=== PATIENT | male | born 1960 | race Caucasian/White ===

== ENCOUNTER → 2019-11-11 | Day surgery (SDC) | payer BC ==
[~2019-11-11] MED LIST: ATOR20TA58 PO; IV RINGERS,LACTATED 1000ML 1,000 ML IV SCH; PROPOFOL 0 ML IV ONE
[2019-11-11 09:49] VITALS: BP 124/76
== END ==
LOC: ENDOS 08:16
PROVIDERS: ATTEND Internal Medicine Gastroenterology
DX: Z12.11 Encounter for screening for malignant neoplasm of colon (principal); K64.0 First degree hemorrhoids; K63.89 Other specified diseases of intestine; F15.90 Other stimulant use, unspecified, uncomplicated; Z80.0 Family history of malignant neoplasm of digestive organs; Z88.0 Allergy status to penicillin; Z85.828 Personal history of other malignant neoplasm of skin; Z72.89 Other problems related to lifestyle; Z87.891 Personal history of nicotine dependence; Z98.890 Other specified postprocedural states
CPT/HCPCS: 45378; J2704

== ENCOUNTER 2021-07-02 18:37 | Emergency (ER) | payer BC ==
[~2021-07-02] VITALS: Ht 175.3 cm; Wt 86.3 kg
[~2021-07-02 18:37] MED LIST changes: -IV RINGERS,LACTATED 1000ML 1,000 ML IV SCH; -PROPOFOL 0 ML IV ONE
[2021-07-02] MEDS ORDERED: IV NORMAL SALINE 1000ML BAG 1,000 ML IV SCH (23:00)
[2021-07-02 23:03] LABS: BILIRUBIN,URINE NEGATIVE (NEG); CLARITY,URINE CLOUDY; COLOR,URINE YELLOW; NITRITE,URINE POSITIVE (NEG); PH,URINE 7.5 (<5.0-8.0); PROTEIN,URINE 100 mg/dL (NEG-TRACE)
--- NOTE | 2021-07-02 23:06 | PHYS DOC ---
Past Medical History Past Medical History: No Pertinent History Past Surgical History: Other Additional Past Surgical Histo: HERNIA, CARPAL TUNNEL Smoking Status: Never Smoker Alcohol Use: Rarely Drug Use: None General Adult EDM: Chief Complaint: BLOOD IN URINE HPI: HPI: Patient is a 60 year old male who presents with today began running a fever of 104 in having painful urination with blood in his urine. States every time he pees he has pain down into his scrotum. 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 He denies chest pain, shortness of breath, cough, nausea, vomiting, diarrhea, back pain, headache, dizziness, focal weakness. He has a history of BPH with prostate surgery, hernia repair and has another hernia now that needs to be repaired, high cholesterol. Review of Systems: Review of Systems: Constitutional: + fever or chills. [] Eyes: Denies change in visual acuity. [] HENT: Denies nasal congestion or sore throat. [] Respiratory: Denies cough or shortness of breath. [] Cardiovascular: Denies chest pain or edema. [] GI: + Lower abdominal pain when urinating, denies nausea, vomiting, bloody stools or diarrhea. [] : Denies dysuria. + Hematuria. + Testicular pain [] Musculoskeletal: Denies back pain or joint pain. [] Integument: Denies rash. [] Neurologic: Denies headache, focal weakness or sensory changes. [] Endocrine: Denies polyuria or polydipsia. [] Lymphatic: Denies swollen glands. [] Psychiatric: Denies depression or anxiety. [] Heart Score: C/O Chest Pain: No Risk Factors: Risk Factors: DM, Current or recent (<one month) smoker, HTN, HLP, family history of CAD, obesity. Risk Scores: Score 0 - 3: 2.5% MACE over next 6 weeks - Discharge Home Score 4 - 6: 20.3% MACE over next 6 weeks - Admit for Clinical Observation Score 7 - 10: 72.7% MACE over next 6 weeks - Early Invasive Strategies Current Medications: Current Medications Medications (Trade) Dose Ordered Sig/Miah Start Time Stop Time Status Last Admin Dose Admin Sodium Chloride 1,000 ml @ 1,000 mls/hr Q1H 07/02/21 23:00 07/02/21 23:59 UNV Allergies: Allergies: Allergies Coded Allergies Type Severity Reaction Last Updated Verified Penicillins Allergy Intermediate 11/11/19 Yes Physical Exam: PE: Constitutional: Well developed, well nourished, no acute distress, non-toxic appearance. [] HENT: Normocephalic, atraumatic, bilateral external ears normal, oropharynx moist, no oral exudates, nose normal. [] Eyes: PERRLA, EOMI, conjunctiva normal, no discharge. [] Neck: Normal range of motion, no tenderness, supple, no stridor. [] Cardiovascular:Heart rate regular rhythm, no murmur [] Lungs & Thorax: Bilateral breath sounds clear to auscultation [] Abdomen: Bowel sounds normal, soft, no tenderness, no masses, no pulsatile masses. [] Skin: Warm, dry, no erythema, no rash. [] Back: No tenderness, no CVA tenderness. [] Extremities: No tenderness, no cyanosis, no clubbing, ROM intact, no edema. [] Neurologic: Alert and oriented X 3, normal motor function, normal sensory function, no focal deficits noted. [] Psychologic: Affect normal, judgement normal, mood normal. [] Normal physical exam Current Patient Data: Vital Signs: Vital Signs Date Time Temp Pulse Resp B/P (MAP) Pulse Ox O2 Delivery O2 Flow Rate FiO2 07/02/21 21:07 99.2 91 18 126/72 (92) 99 Room Air 99.2 EKG: EKG: [] Radiology/Procedures: Radiology/Procedures: [] Impression: [id number] [place], [place] [id number] IMAGING REPORT Signed PATIENT: EDDIE MEJIA ACCOUNT: [id number] : 1960 LOCATION: ER AGE: 60 SEX: M EXAM STATUS: REG ER ORD. PHYSICIAN: CATRACHITO KOROMA APRN REASON: LOWER ABD PAIN, BLOOD IN URINE, FEVER, TESTICLE PAIN PROCEDURE: CT ABD PELV W/ IV CONTRST ONLY CT abdomen and pelvis with contrast: Reason for examination: Low abdominal and testicular pain. Blood in urine. Fever. Helical images were obtained through the abdomen and pelvis with intravenous administration of 75 cc Omnipaque 300 reconstruction was performed in sagittal and coronal planes. Exposure: One or more of the following individualized dose reduction techniques were utilized for this examination: 1. Automated exposure control 2. Adjustment of the mA and/or kV according to patient size 3. Use of iterative reconstruction technique. The lung bases are clear. The heart size is normal with no pericardial effusion. No abnormalities of seen at the liver, spleen, adrenal glands, gallbladder or pancreas. The abdominal aorta and inferior vena cava show no acute abnormalities. The colon shows no diverticulosis, diverticulitis or colitis. No abnormality seen at the appendix. The small intestinal tract shows no abnormal dilatation, wall thickening or obstruction. No abnormality seen at the stomach or duodenum. The right kidney shows a 3 cm cyst laterally at the midpole. The left kidney shows a 2.3 cm cyst anteriorly at the lower pole. There appears to be some calyceal dilatation or parapelvic cysts in the left kidney but no renal calculi are evident. The bladder shows wall thickening. Prostate gland is enlarged at 5 cm. Seminal vesicles are symmetric. No free fluid or free air is seen in the abdomen or pelvis. IMPRESSION: Renal cysts bilaterally. Calyceal dilatation or parapelvic cysts in the left kidney but no renal calculi or apparent obstructive uropathy. Bladder wall thickening. Enlarged prostate gland. Electronically signed by: Jamie Bose MD (07/02/2021 11:53 PM) [facility] DICTATED and SIGNED BY: JAMIE BOSE MD DATE: 07/02/21 [id number] 0 Course & Med Decision Making: Course & Med Decision Making Pertinent Labs and Imaging studies reviewed. (See chart for details) See HPI. Alert and oriented x4. Ambulatory steady gait. Skin pink warm and dry. No testicular swelling. Patient only has 1 testicle that he was born with. No testicular tenderness. Normal lie. no scrotal cellulitis. Abdomen soft and nontender. No CVA tenderness. Low-grade temperature here in the ED. CT abdomen pelvis shows a an infection of the bladder. Urinalysis positive for nitrites. Patient has a large prostate. Patient is given ciprofloxacin dose in the ED. Patient states that his allergy to penicillin is very minimal and he has had amoxicillin in the past and I did nothing to them. He states he is does not think that he is actually allergic to penicillins. [] Dragon Disclaimer: Dragon Disclaimer: This electronic medical record was generated, in whole or in part, using a voice recognition dictation system. Departure Departure Impression: Primary Impression: Urinary tract infection Qualified Codes: N30.01 - Acute cystitis with hematuria Disposition: HOME / SELF CARE / HOMELESS Condition: STABLE Referrals: DREW NGUYỄN MD (PCP) Patient Instructions: Benign Prostatic Hypertrophy, Urinary Tract Infection Additional Instructions: Follow-up with primary care provider or a urologist. Drink plenty of fluids. Take ibuprofen or Tylenol to help with your fever. Scripts Cefpodoxime Proxetil (CEFPODOXIME PROXETIL) 200 Mg Tablet 1 TAB PO BID for 14 Days, #28 TAB Prov: CATRACHITO KOROMA APRN 07/03/21 CATRACHITO KOROMA APRN Jul 02, 2021 23:06
[2021-07-02 23:11] LABS: BASO # 0.1 x10^3/uL (0.0-0.2); BASO % 1 % (0-3); EOS # 0.1 x10^3/uL (0.0-0.7); EOS % 1 % (0-3); HEMATOCRIT 38.4 % (39.0-53.0); HEMOGLOBIN 13.4 g/dL (13.0-17.5); LYMPH # 1.4 x10^3/uL (1.0-4.8); LYMPH % 15 % (24-48); MEAN CORPUSCULAR HEMOGLOBIN 30 pg (25-35); MEAN CORPUSCULAR HGB CONC 35 g/dL (31-37); MEAN CORPUSCULAR VOLUME 86 fL (79-100); MONO % 10 % (0-9); NEUT % 73 % (31-73); PLATELET COUNT 253 x10^3/uL (140-400); RED BLOOD COUNT 4.46 x10^6/uL (4.30-5.70); RED CELL DISTRIBUTION WIDTH 13.8 % (11.5-14.5); WHITE BLOOD COUNT 9.6 x10^3/uL (4.0-11.0)
[2021-07-02 23:16] LABS: BACTERIA,URINE MANY /HPF (0-FEW); RBC,URINE TNTC /HPF (0-2); WBC,URINE TNTC /HPF (0-4)
[2021-07-02 23:19] LABS: CALCIUM 9.2 mg/dL (8.5-10.1); POTASSIUM 4.3 mmol/L (3.5-5.1)
[2021-07-02 23:24] LABS: ALBUMIN 3.8 g/dL (3.4-5.0); ALBUMIN/GLOBULIN RATIO 1.1 (1.0-1.7); TOTAL BILIRUBIN 0.5 mg/dL (0.2-1.0); TOTAL PROTEIN 7.4 g/dL (6.4-8.2)
[2021-07-02] MEDS ORDERED: CONTRAST GIVEN. MC PRN (23:30)
[2021-07-02] MEDS ORDERED: IOHEXOL 300 MG/ML 100ML VIAL. IV ONE (23:30)
--- NOTE | 2021-07-02 23:56 | RAD ---
CT abdomen and pelvis with contrast: Reason for examination: Low abdominal and testicular pain. Blood in urine. Fever. Helical images were obtained through the abdomen and pelvis with intravenous administration of 75 cc Omnipaque 300 reconstruction was performed in sagittal and coronal planes. Exposure: One or more of the following individualized dose reduction techniques were utilized for thi s examination: 1. Automated exposure control 2. Adjustment of the mA and/or kV according to patient size 3. Use of iterative reconstruction technique. The lung bases are clear. The heart size is normal with no pericardial effusion. No abnormalities of seen at the liver, spleen, adrenal glands, gallbladder or pancreas. The abdominal aorta and inferior vena cava show no acute abnormalities. The colon shows no diverticulosis, diverti culitis or colitis. No abnormality seen at the appendix. The small intestinal tract shows no abnormal dilatation, wall thickening or obstruction. No abnormality seen at the stomach or duodenum. The righ t kidney shows a 3 cm cyst laterally at the midpole. The left kidney shows a 2.3 cm cyst anteriorly a t the lower pole. There appears to be some calyceal dilatation or parapelvic cysts in the left kidney but no renal calculi are evident. The bladder shows wall thickening. Prostate gland is enlarged at 5 cm. Seminal vesicles are symmetric . No free fluid or free air is seen in the abdomen or pelvis. IMPRESSION: Renal cysts bilaterally. Calyceal dilatation or parapelvic cysts in the left kidney but no renal calculi or apparent obstructi ve uropathy. Bladder wall thickening. Enlarged prostate gland. Electronically signed by: Farhana Vicente MD (07/02/2021 11:53 PM) JAKE
[2021-07-03] MEDS ORDERED: CIPROFLOXACIN 400MG PREMIX 200 ML IV ONE (00:15)
[2021-07-03] MEDS ORDERED: CEFP200T PO (00:38)
[2021-07-03 01:37] VITALS: BP 145/66
--- NOTE | 2021-07-03 18:10 | NUR ---
IP: Informed pt of negative covid results. Pt verbalized understanding.
== END 2021-07-03 01:46 | disposition home or self-care (01) ==
LOC: ER 18:37
DX: N30.01 Acute cystitis with hematuria (principal); Z20.822 Contact with and (suspected) exposure to COVID-19; Z98.890 Other specified postprocedural states
CPT/HCPCS: 36415; 74177; 80053; 81001; 83690; 85025; 87086; 87426; 96361; 96365; 99285; J0744; J7030; Q9967; U0003; U0005

== ENCOUNTER → 2021-07-25 | Outpatient (CLI) | payer BC ==
[2021-07-03 01:37] VITALS: BP 145/66
[~2021-07-25] MED LIST changes: +CEFP200T PO; +GADOTERATE 5 MMOL/10ML VIAL. IVP ONE
--- NOTE | 2021-07-26 09:56 | KCIC ---
MRI of the pelvis without contrast 07/25/2021 CLINICAL HISTORY: Pelvic and right groin pain. TECHNIQUE: Unenhanced T1-weighted sagittal axial and coronal, inversion recovery coronal and axial an d fat saturated T2-weighted sagittal images of the pelvis were obtained. After the intravenous admini stration of 17 cc of Clariscan, enhanced fat saturated T1-weighted sagittal axial coronal images of t he pelvis were obtained. FINDINGS: Comparison is made to patient's CT scan of the abdomen and pelvis dated 07/02/2021. Soft tissue signal intensity is seen within the right inguinal canal extending to right superior scro brian, unchanged from the previous examination. This area enhances with contrast. This may represent a varicocele. There is a small fat-containing left inguinal hernia which measures 5.4 cm in size. The p rostate gland is enlarged likely related to BPH. It measures 5.3 x 3.9 x 3.9 cm in transverse, cranio caudal and AP dimensions. Diffuse wall thickening of the urinary bladder is seen which likely reflect s hypertrophy from bladder outlet obstruction related to the BPH. No pelvic or inguinal lymphadenopat hy is seen. No free fluid is noted. Mild to moderate degenerative changes are seen involving both SI joints. IMPRESSION: 1. Increased soft tissue density is seen within the right inguinal canal which may represent a varico monica. 2. Small fat-containing left inguinal hernia. 3. The prostate gland is enlarged likely related to BPH. Diffuse wall thickening of the urinary bladd er is seen which likely reflects hypertrophy related to bladder outlet obstruction. 4. No acute abnormality is seen. Electronically signed by: Ramses Arzola MD (07/26/2021 9:54 AM) [id number]
== END ==
LOC: KCIC MRI 15:16
PROVIDERS: ATTEND Surgery
DX: K40.90 Unilateral inguinal hernia, without obstruction or gangrene, not specified as recurrent (principal); R10.31 Right lower quadrant pain; N40.0 Benign prostatic hyperplasia without lower urinary tract symptoms
CPT/HCPCS: 72197; A9575

== ENCOUNTER → 2021-12-25 | Outpatient (CLI) | payer BC ==
[~2021-12-25] MED LIST changes: -GADOTERATE 5 MMOL/10ML VIAL. IVP ONE
--- NOTE | 2021-12-25 13:32 | KCIC ---
EXAMINATION: XR CHEST 2V CLINICAL HISTORY: Preoperative clearance. EXAM DATE/TIME: 12/25/2021 9:54 AM COMPARISON: None FINDINGS: Lines, Tubes, and Devices: None. Cardiomediastinal Silhouette: Normal heart size. Aortic atherosclerotic calcification. Lungs and Pleura: No evidence of focal airspace consolidation or pleural effusion. Pulmonary vasculat ure unremarkable. Bones and Soft Tissues: Degenerative changes in the thoracic spine. IMPRESSION: No evidence of acute cardiopulmonary abnormality. Electronically signed by: Daniel Salgado DO (12/25/2021 1:29 PM) [id number]
== END ==
LOC: KCIC 09:51
PROVIDERS: ATTEND Orthopaedic Surgery Adult Reconstructive Orthopaedic Surgery
DX: Z01.818 Encounter for other preprocedural examination (principal); M47.814 Spondylosis without myelopathy or radiculopathy, thoracic region
CPT/HCPCS: 71046